=== PATIENT | female | born 1985 | race Caucasian/White ===

== ENCOUNTER 2023-01-03 09:21 | Outpatient (CLI) | payer MEDICAID, SELFPAY | END 2023-01-03 09:22 | disposition home or self-care (01) | PROVIDERS: PCP Physician Assistant; Visit Provider Obstetrics & Gynecology | DX: Z34.91 Encounter for supervision of normal pregnancy, unspecified, first trimester (principal); Z3A.01 Less than 8 weeks gestation of pregnancy | CPT/HCPCS: 84702; 86900; 86901 ==

== ENCOUNTER 2023-01-07 14:18 | Outpatient (CLI) | payer MEDICAID, SELFPAY | END 2023-01-07 14:19 | disposition home or self-care (01) | PROVIDERS: PCP Physician Assistant; Visit Provider Advanced Practice Midwife | DX: Z34.91 Encounter for supervision of normal pregnancy, unspecified, first trimester (principal); Z3A.01 Less than 8 weeks gestation of pregnancy | CPT/HCPCS: 76817; 86592; 86703; 86762; 86787; 86803; 86850; 86900; 86901; 87086; 87340; 87491; 87591 ==

== ENCOUNTER 2023-02-01 13:41 | Outpatient (CLI) | payer BC, SELFPAY | END 2023-02-01 13:42 | disposition home or self-care (01) | PROVIDERS: Referring Provider Physician Assistant; Visit Provider Advanced Practice Midwife | DX: O09.521 Supervision of elderly multigravida, first trimester (principal); Z13.79 Encounter for other screening for genetic and chromosomal anomalies; Z34.90 Encounter for supervision of normal pregnancy, unspecified, unspecified trimester | CPT/HCPCS: 87086 ==

== ENCOUNTER 2023-05-05 10:46 | Outpatient (CLI) | payer BC, SELFPAY ==
--- NOTE | 2023-05-05 11:00 | CRLHL7_ITS ---
For Patients: As a result of the Century Cures Act, medical imaging exams and procedure reports are released immediately into your electronic medical record. You may view this report before your referring provider. If you have questions, please contact your health care provider. INDICATION: History of IUGR COMPARISON: 01/07/2023 TECHNIQUE: Real time caldera scale imaging of the fetus was performed. FINDINGS: Sonographic imaging demonstrates a single living intrauterine gestation. Fetus demonstrates a regular cardiac rate of 154 beats per minute. Fetus has a breech position. The placenta lies anteriorly. Amniotic fluid volume appears normal and there is a single deepest vertical pocket: 6.1 cm. The estimated weight is 645gm which lies at the 22nd %. BPD 23rd percentile. HC 16th percentile. AC 30th percentile. FL 19th percentile. The HC/AC ratio measures 1.13 range (1.04-1.21). Cervix is closed and measures 3.6 cm. IMPRESSION: Sonographic gestational age 24 weeks 0 days and sonographic due date 08/25/2023. Good correlation with dates. Estimated weight 22nd percentile. Abdominal circumference 30th percentile. Dictated by Haja Hunter MD @ 05/05/2023 11:49:04 AM (Electronically Signed)
== END 2023-05-05 10:47 | disposition home or self-care (01) ==
LOC: US 10:46
PROVIDERS: Visit Provider Advanced Practice Midwife
DX: Z34.92 Encounter for supervision of normal pregnancy, unspecified, second trimester (principal); O09.522 Supervision of elderly multigravida, second trimester; Z3A.24 24 weeks gestation of pregnancy
CPT/HCPCS: 76816

== ENCOUNTER 2023-06-03 13:54 | Outpatient (CLI) | payer BC, SELFPAY | END 2023-06-03 13:55 | disposition home or self-care (01) | LOC: NFLDREF 06-08 11:16 | PROVIDERS: Visit Provider Obstetrics & Gynecology | DX: Z34.90 Encounter for supervision of normal pregnancy, unspecified, unspecified trimester (principal) | CPT/HCPCS: 86592 ==